=== PATIENT | male | born 1985 | race African-American/Black ===

== ENCOUNTER 2017-08-19 15:23 | Emergency (ER) | payer OTHER ==
[2017-08-19 15:32] VITALS: RESP 18
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
[2017-08-19 17:20] VITALS: BP 140/80; PULSE 66; TEMP 98.7
== END 2017-08-19 17:18 | disposition home or self-care (01) ==
LOC: EC 15:23
DX: Z48.02 Encounter for removal of sutures (principal); F17.200 Nicotine dependence, unspecified, uncomplicated
CPT/HCPCS: 99281

== ENCOUNTER 2017-11-13 12:21 | Emergency (ER) | payer OTHER ==
[2017-11-13 12:32] VITALS: BP 145/93; PULSE 56; RESP 18; TEMP 98.8
--- NOTE | 2017-11-13 13:07 | ED ---
Recheck HPI - General Chief Complaint: Recheck/Abnormal Lab/Rx Stated Complaint: Bee sting/Need work note Time Seen by Provider: 11/13/17 12:41 Source: patient, RN notes reviewed, old records reviewed Mode of arrival: ambulatory Limitations: no limitations - History of Present Illness Initial Comments: Patient is a 32-year-old male presents for his safety plan a bee sting on Friday. Patient reports that he needs a work note for that time. Patient reports he was sent in the lip. He took Benadryl and was too tired to go to work. He works in a factory. Patient has been to work since that time. He stated that he needed to work note for a day on Friday when he missed due to the bee sting. Denies any complaints at this time. - Related Data Home Medications Medication Instructions Recorded Confirmed No Known Home Medications 08/19/17 08/19/17 Allergies Allergy/AdvReac Type Severity Reaction Status Date / Time No Known Allergies Allergy Verified 11/13/17 12:32 Review of Systems ROS Statement: Those systems with pertinent positive or pertinent negative responses have been documented in the HPI. ROS Other: All systems not noted in ROS Statement are negative. Past Medical History Past Medical History: No Reported History History of Any Multi-Drug Resistant Organisms: None Reported Past Surgical History: No Surgical Hx Reported Past Psychological History: No Psychological Hx Reported Smoking Status: Current every day smoker Past Alcohol Use History: Daily Past Drug Use History: Marijuana General Exam - General Exam Comments Initial Comments: Well-appearing 32-year-old male. No distress. Limitations: no limitations General appearance: alert, in no apparent distress Head exam: Present: atraumatic, normocephalic, normal inspection Eye exam: Present: normal appearance, PERRL, EOMI. Absent: scleral icterus, conjunctival injection, periorbital swelling ENT exam: Present: normal exam, mucous membranes moist Neck exam: Present: normal inspection. Absent: tenderness, meningismus, lymphadenopathy Respiratory exam: Present: normal lung sounds bilaterally. Absent: respiratory distress, wheezes, rales, rhonchi, stridor Cardiovascular Exam: Present: regular rate, normal rhythm, normal heart sounds. Absent: systolic murmur, diastolic murmur, rubs, gallop, clicks GI/Abdominal exam: Present: soft, normal bowel sounds. Absent: distended, tenderness, guarding, rebound, rigid Extremities exam: Present: normal inspection, full ROM, normal capillary refill. Absent: tenderness, pedal edema, joint swelling, calf tenderness Back exam: Present: normal inspection Neurological exam: Present: alert, oriented X3, CN II-XII intact Psychiatric exam: Present: normal affect, normal mood Course Vital Signs 11/13/17 12:29 Temperature 98.8 F Pulse Rate 56 L Respiratory 18 Rate Blood Pressure 145/93 O2 Sat by Pulse 100 Oximetry Medical Decision Making - Medical Decision Making 32-year-old male presents emergency Department chief complaint of needing a work note. He was stung on Friday by being in his lip. Patient took Benadryl and sutured at work. Patient appears well this time. No distress.Small remnants of the scab from his bee sting on his lip. Patient understands given were not discussed follow-up and return parameters. Patient essentially plan will comply. Disposition Clinical Impression: Bee sting Disposition: HOME SELF-CARE Condition: Good Instructions: Insect Bite or Sting (ED) Additional Instructions: Patient has follow up with primary care physician. Return to emergency department if any alarming signs or symptoms occur. Is patient prescribed a controlled substance at d/c from ED?: No Referrals: None,Stated [Primary Care Provider] - 1-2 days Time of Disposition: 13:07
== END 2017-11-13 13:51 | disposition home or self-care (01) ==
LOC: EC 12:21
DX: Z02.79 Encounter for issue of other medical certificate (principal); T63.441A Toxic effect of venom of bees, accidental (unintentional), initial encounter; F17.200 Nicotine dependence, unspecified, uncomplicated
CPT/HCPCS: 99282

== ENCOUNTER 2018-07-25 03:59 | Emergency (ER) | payer OTHER ==
[2018-07-25] MEDS ORDERED: LIDOCAINE 1% INJ 10MG/ML (20 ML MDV) SQ ONE (04:31)
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
[2018-07-25] MEDS ORDERED: DIPH,PERTUS(ACELL)TETVAC-LF 0.5 ML VIAL IM ONE (05:36)
[2018-07-25 05:54] VITALS: BP 110/53; PULSE 81; RESP 17; TEMP 98.3
== END 2018-07-25 05:54 | disposition home or self-care (01) ==
LOC: EC 03:59
DX: S21.212A Laceration without foreign body of left back wall of thorax without penetration into thoracic cavity, initial encounter (principal); S31.010A Laceration without foreign body of lower back and pelvis without penetration into retroperitoneum, initial encounter; F17.200 Nicotine dependence, unspecified, uncomplicated; X99.9XXA Assault by unspecified sharp object, initial encounter
CPT/HCPCS: 99283; 96372; J2001

== ENCOUNTER 2018-10-18 06:28 | Emergency (ER) | payer OTHER ==
[2018-10-18 06:32] VITALS: TEMP 98.8
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
[2018-10-18] MEDS ORDERED: KETOROLAC 60 MG/2 ML VIAL IM STA (07:29)
[2018-10-18] MEDS ORDERED: ORPHENADRINE 30 MG/ML 2 ML VIAL IM STA (07:29)
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
--- NOTE | 2018-10-18 07:51 | XR ---
EXAMINATION TYPE: XR cervical spine limited DATE OF EXAM: 10/18/2018 TECHNIQUE: Frontal, lateral, and open mouth view of the cervical spine are obtained. HISTORY: Pain COMPARISON: None FINDINGS: The cervical spine is visualized in its entirety from C1 thru the top of T1 level, it is s traightened in alignment without evidence of acute fracture or dislocation. The pre-vertebral soft t issue appears within normal limits. The C1-C2 articulation is within normal limits on the open mouth view. Vertebral body heights are maintained. Mild disc space narrowing C5-C6 and C6-C7 levels. Overl lizeth soft tissue is unremarkable. IMPRESSION: No acute fracture or dislocation is seen in the cervical spine.
[2018-10-18 08:26] LABS: Amphetamine Screen,Urine Not Detected (NotDetected); Barbiturate Screen,Urine Not Detected (NotDetected); Benzodiazepines Screen,Urine Not Detected (NotDetected); Cocaine Screen,Urine Not Detected (NotDetected); Methadone Screen, Urine Not Detected (NotDetected); Opiate Screen,Urine Not Detected (NotDetected); Oxycodone Screen, Urine Not Detected (NotDetected); Phencyclidine Screen,Urine Not Detected (NotDetected); Tricyclic Antidepressant,Urine Not Detected (NotDetected); Urn Cannabinoid Scrn Not Detected (NotDetected)
[2018-10-18 08:48] VITALS: BP 138/88; PULSE 90; RESP 14
== END 2018-10-18 08:27 | disposition home or self-care (01) ==
LOC: EC 06:28
DX: S49.91XA Unspecified injury of right shoulder and upper arm, initial encounter (principal); F17.200 Nicotine dependence, unspecified, uncomplicated; Y04.8XXA Assault by other bodily force, initial encounter; Y92.488 Other paved roadways as the place of occurrence of the external cause
CPT/HCPCS: 80306; 72040; 73030; 73080; 99284; 96372 ×2; J2360; J1885

== ENCOUNTER → 2020-07-17 | Outpatient (CLI) | payer OTHER ==
[2020-07-17 19:22] LABS: African American GFR (CKD) 92.2 (60.0-200.0); Albumin 4.3 g/dL (3.80-4.90); Albumin/Globulin Ratio 1.87 (1.60-3.17); Anion Gap 3.3 mmol/L (4.00-12.00); BUN/Creat Ratio 10.83 Ratio (12.00-20.00); Calcium 9.4 mg/dL (8.7-10.3); Carbon Dioxide 29.7 mmol/L (21.6-31.8); Globulin 2.3 g/dL (1.6-3.3); Non-African American GFR(CKD) 79.5 (60.0-200.0); Potassium 4.3 mmol/L (3.5-5.5); Total Bilirubin 0.5 mg/dL (0.3-1.2); Total Protein 6.6 g/dL (6.2-8.2)
[2020-07-18 02:46] LABS: Hepatitis A Antibody IgM Non-Reactive (Non-Reactive); Hepatitis B Core IgM Non-Reactive (Non-Reactive); Hepatitis B Surface Antigen Non-Reactive (Non-Reactive); Hepatitis C IgG Antibody Non-Reactive (Non-Reactive)
== END | disposition home or self-care (01) ==
LOC: LABWHC1 13:49
PROVIDERS: ATTEND Internal Medicine
DX: R17 Unspecified jaundice (principal)
CPT/HCPCS: 36415; 80053; 80074